=== PATIENT | female | born 1960 | race Caucasian/White ===

== ENCOUNTER 2019-03-08 09:33 | Day surgery (SDC) | payer BC ==
[~2019-03-08] VITALS: Ht 157.5 cm; Wt 62.0 kg
[~2019-03-08 09:33] MED LIST: ATOR10; ATOR20 PO; BIEST/PROGESTERONE PO; CENTRUM WOMEN1 EACH PO; DAILY MULTIPLE1 EACH; HORMONE REPLACEMENT; HYDACE5 PO; IBUP800 PO; LEVSOD25 PO; META800 PO; VITAMIN D32000 UNIT PO
== END 2019-03-08 12:00 | disposition home or self-care (01) ==
LOC: ORSCSDS 09:33
PROVIDERS: Internal Medicine Gastroenterology
PROC: 0DBL8ZX Excision of Transverse Colon, Via Natural or Artificial Opening Endoscopic, Diagnostic (ICD-10-PCS; principal; 2019-03-08 10:45)
PROC: 0DBN8ZX Excision of Sigmoid Colon, Via Natural or Artificial Opening Endoscopic, Diagnostic (ICD-10-PCS; principal; 2019-03-08 10:45)
DX: Z12.11 Encounter for screening for malignant neoplasm of colon (principal); Z86.010 Personal history of colon polyps; Z80.0 Family history of malignant neoplasm of digestive organs; D12.3 Benign neoplasm of transverse colon; D12.5 Benign neoplasm of sigmoid colon; K64.8 Other hemorrhoids; E03.9 Hypothyroidism, unspecified; E78.5 Hyperlipidemia, unspecified; Z79.899 Other long term (current) drug therapy
CPT/HCPCS: 88305; J2704; J7120

== ENCOUNTER 2024-08-02 09:45 | Day surgery (SDC) | payer OTHER ==
[~2024-08-02] VITALS: Ht 160 cm; Wt 63.2 kg
[~2024-08-02 09:45] MED LIST changes: +Atropine Sulfate 0.1 MG/ML 10ML SYR ONE; +Glycopyrrolate 0.2 MG/ML 1MLVIAL ONE; +Lactated Ringer's 1,000 ML IV ONE; +Lidocaine 2% 5 ML SDV ONE; +Lidocaine HCl/Pf 1% 5 ML VIAL ONE; +Methylene Blue 1% 100 MG/10 ML VIAL ONE; +Ondansetron HCl 2 MG / ML 2ML Vial ONE; +ePHEDrine Sulfate 50 MG/ML 1ML Injection ONE; +propofoL 40 ML IV ONE
[2024-08-02] MEDS ORDERED: Lactated Ringer's 1,000 ML IV ONE (10:54)
[2024-08-02] MEDS ORDERED: propofoL 20 ML IV ONE (11:57)
[2024-08-02 12:41] VITALS: BP 110/69
== END 2024-08-02 12:30 | disposition home or self-care (01) ==
LOC: ORSCSDS 09:45
PROVIDERS: Internal Medicine Gastroenterology
PROC: 0DJD8ZZ Inspection of Lower Intestinal Tract, Via Natural or Artificial Opening Endoscopic (ICD-10-PCS; principal; 2024-08-02 11:00)
DX: Z12.11 Encounter for screening for malignant neoplasm of colon (principal); Z86.0100 Personal history of colon polyps, unspecified; Z80.0 Family history of malignant neoplasm of digestive organs; K64.8 Other hemorrhoids
CPT/HCPCS: J0461; J2003; J2405; J2704; J7120; Q9968